=== PATIENT | female | born 1950 | race Caucasian/White ===

== ENCOUNTER 2023-03-09 09:57 | Emergency (ER) | payer MEDICARE, SELFPAY ==
--- NOTE | ~2023-03-09 | XR_ITS ---
XR hand RT min 3V 03/09/2023 10:21 Indication: Right hand pain Procedure: 3 views right hand Comparison: No prior studies for comparison. Findings: There is an oblique displaced fracture fifth proximal phalanx. Osteopenia. Mild polyarticul ar osteoarthritis. Mild soft tissue swelling. Impression: 1: Oblique displaced extra-articular fracture right fifth proximal phalanx with approximately one emory f bone width dorsal displacement. No significant angulation. Reviewed, dictated and finalized at location [] Impression: 1: Oblique displaced extra-articular fracture right fifth proximal phalanx with approximately one half bone width dorsal displacement. No significant angulati on.
[2023-03-09 09:59] VITALS: BP 138/68; PULSE 77; RESP 16; TEMP 36.3; O2SAT 97
--- NOTE | 2023-03-09 11:05 | ED.GENADULT ---
HPI - General Adult General Chief complaint: Extremity Injury, Upper Stated complaint: R HAND INJURY Time Seen by Provider: 03/09/23 10:13 History of Present Illness HPI narrative: 72-year-old female presented the emergency department for evaluation of right fifth finger pain. Patient reports she was getting ready to walk her dog and had the leash wrapped around her right hand when the dog pulled and she felt a pop in her fifth finger. Patient did have some swelling of the fifth and fourth fingers. Patient did have rings on the fourth finger that she removed. Patient denies falling, denies any head neck or back injury. Patient denies any other pain or injury from the incident. Related Data Home Medications Medication Instructions Recorded Confirmed atorvastatin 10 mg tablet 10 mg PO DAILY 02/28/23 02/28/23 escitalopram oxalate 20 mg tablet 20 mg PO DAILY 02/28/23 02/28/23 losartan 100 mg tablet 100 mg PO DAILY 02/28/23 02/28/23 torsemide 5 mg tablet 5 mg PO DAILY 02/28/23 02/28/23 Allergies Allergy/AdvReac Type Severity Reaction Status Date / Time No Known Allergies Allergy Verified 03/09/23 10:09 Review of Systems Review of Systems: All systems reviewed & are unremarkable except as noted in HPI and below PMFSH Social History Social History (System 08/27/19 @ 10:09 by Kalee Caldwell) Spiritual care concerns: No Exam Narrative: APPEARANCE: Well appearing, no pain, no distress, well-nourished. HEAD: normocephalic, atraumatic. EYES: PERRLA/EOMI, conjunctivae clear. NOSE: Normal no drainage NECK: Supple. No adenopathy, no masses. RESPIRATORY: Airway patent, respirations nonlabored. Clear to auscultation bilaterally, no rales, rhonchi, wheezing. CARDIOVASCULAR: Regular rate and rhythm without murmurs rubs or gallops. ABDOMINAL: Soft, nontender, nondistended, normal bowel sounds MUSCULOSKELETAL: Swelling and tenderness of both the fourth and fifth fingers of the right hand neurovascular intact. Strong cap refill NEURO: Alert. Cranial nerves II through XII intact. Grossly intact SKIN: Warm, dry. Normal Color. Cap refill on affected fingers Course Course Emergency Course: 72-year-old female presented to ED for evaluation of right hand pain. Patient does have a fracture of the proximal phalanx of the fifth finger. Patient does have bruising and swelling over both fourth and fifth fingers. Neurovascular intact. Patient was updated on the results of her x-rays, was placed in a metallic splint and was provided follow-up with hand. All questions and concerns were addressed and patient was comfortable with the plan with discharge and close follow-up. Vital Signs Vital signs: Vital Signs Temperature 97.4 F L 03/09/23 09:59 Pulse Rate 77 03/09/23 09:59 Respiratory Rate 16 03/09/23 09:59 Blood Pressure 138/68 03/09/23 09:59 Pulse Oximetry 97 03/09/23 09:59 Oxygen Delivery Room Air 03/09/23 09:59 Temperature 97.4 F L 03/09/23 09:59 Pulse Rate 77 03/09/23 09:59 Respiratory Rate 16 03/09/23 09:59 Blood Pressure 138/68 03/09/23 09:59 Pulse Oximetry 97 03/09/23 09:59 Oxygen Delivery Room Air 03/09/23 09:59 Medical Decision Making Differential Diagnosis Differential Diagnosis: Metacarpal fracture, finger fracture, wrist fracture Vital Signs Vital Signs: Vital Signs Temperature 97.4 F L 03/09/23 09:59 Pulse Rate 77 03/09/23 09:59 Respiratory Rate 16 03/09/23 09:59 Blood Pressure 138/68 03/09/23 09:59 Pulse Oximetry 97 03/09/23 09:59 Oxygen Delivery Room Air 03/09/23 09:59 Temperature 97.4 F L 03/09/23 09:59 Pulse Rate 77 03/09/23 09:59 Respiratory Rate 16 03/09/23 09:59 Blood Pressure 138/68 03/09/23 09:59 Pulse Oximetry 97 03/09/23 09:59 Oxygen Delivery Room Air 03/09/23 09:59 Imaging Data Radiologist's impression: Impressions Hand X-Ray 03/09/23 10:28 Impression: 1: Oblique displaced extra
== END 2023-03-09 11:25 | disposition home or self-care (01) ==
PROVIDERS: Emergency Provider Emergency Medicine; PCP Internal Medicine
DX: S62.616A Displaced fracture of proximal phalanx of right little finger, initial encounter for closed fracture (principal); X50.9XXA Other and unspecified overexertion or strenuous movements or postures, initial encounter; Y93.K1 Activity, walking an animal
CPT/HCPCS: 29130; 29515; 73130; 99284

== ENCOUNTER 2023-03-12 00:40 | Day surgery (SDC) | payer MEDICARE, SELFPAY ==
[2023-02-28 14:07] VITALS: BMI 29.2
--- NOTE | 2023-03-09 15:35 | P.HP_ITS ---
History of Present Illness History of Present Illness Consent: Risks, benefits, and alternatives have been discussed and questions answered. Patient agrees to proceed with procedure. Chief complaint: neoplasm screening Narrative: Valencia Pollock is a 72 year old female referred for colon cancer screening. her last colonoscopy was about 7 years ago. She has a family history, her father had colon cancer. She believes that she had a polyp with her 1st colono scopy. Review of Systems Review of Systems: All systems reviewed & are unremarkable except as noted in HPI and below PMFSH Social History Social History Spiritual care concerns: No Meds Home Medications and Allergies Home Medications Medication Instructions Recorded Confirmed Type atorvastatin 10 mg tablet 10 mg PO DAILY 02/28/23 03/12/23 History escitalopram oxalate 20 mg tablet 20 mg PO DAILY 02/28/23 03/12/23 History losartan 100 mg tablet 100 mg PO DAILY 02/28/23 03/12/23 History torsemide 5 mg tablet 5 mg PO DAILY 02/28/23 03/12/23 History Allergies Allergy/AdvReac Type Severity Reaction Status Date / Time No Known Allergies Allergy Verified 03/12/23 08:44 Exam Resp: Auscultation: clear to auscultation bilaterally Cardio: Rate: regular rate Rhythm: regular rhythm GI: GI Palp: Yes Soft to palpation and No Tenderness to palpation present (GI) Assessment and Plan Assessment and plan (1) Colon cancer screening: Code(s): Z12.11 - Encounter for screening for malignant neoplasm of colon Status: Acute Assessment and Plan: Colonoscopy with possible biopsy or polypectomy or cautery or injection of substances.
[2023-03-12 08:45] VITALS: BP 131/66; PULSE 74; RESP 18; TEMP 36.2; O2SAT 100
[2023-03-12] MEDS: LACTATED RINGERS 1,000 ML 150 ML IV CONT (08:47)
--- NOTE | 2023-03-12 10:09 | P.PNAN_ITS ---
Anes - Initial Pre Proc Eval Procedure: Operation Date: 03/12/23 10:00 Proposed Procedures p Screening Colonoscopy - Gil Schulz MD Date/Time: 03/12/23 10:09 Surgeon: Gil Schulz MD Pre Op Diagnosis: neoplasm screening Patient Data Age: 72 Gender: F Height: 1.68 m Weight: 81.3 kg Last Vital Signs Temp 97.1 F L 03/12/23 08:45 Pulse 74 03/12/23 08:45 Resp 18 03/12/23 08:45 BP 131/66 03/12/23 08:45 Pulse Ox 100 03/12/23 08:45 O2 Del Method Room Air 03/12/23 08:45 Allergies Allergy/AdvReac Type Severity Reaction Status Date / Time No Known Allergies Allergy Verified 03/12/23 08:44 Home Medications Medication Instructions Recorded Confirmed Type atorvastatin 10 mg tablet 10 mg PO DAILY 02/28/23 03/12/23 History escitalopram oxalate 20 mg tablet 20 mg PO DAILY 02/28/23 03/12/23 History losartan 100 mg tablet 100 mg PO DAILY 02/28/23 03/12/23 History torsemide 5 mg tablet 5 mg PO DAILY 02/28/23 03/12/23 History Patient hx anesthesia problems: none Family hx anesthesia problems: none Results Review: All pre-operative results and documents have been reviewed as part of the pre-operative evaluation. COUNT INCLUDES THE [facility] Social History Social History Spiritual care concerns: No Anes - Eval Final PreProcedure Day of Procedure 03/12/23 10:09 Patient weight: normal Heart: regular rate and rhythm Lungs: clear to auscultation Airway: Mallampati scale class II Neurological: alert and oriented Last oral intake: >/= 8 hours ASA classification: II Emergent: no Anesthetic plan: proceed Anesthesia type and monitoring: general GIVS and standard monitoring Results Review: All pre-operative results and documents have been reviewed as part of the pre- operative evaluation. Informed Consent: The patient's anesthetic plan and its attendant risks and benefits were discussed with the patient/family/POA. Questions were solicited and answers provided to the satisfaction of the patient/family/POA.
[2023-03-12 10:32] VITALS: BP 93/46; PULSE 68; RESP 17; O2SAT 97
[2023-03-12 10:42] VITALS: BP 106/70; PULSE 71; RESP 24; O2SAT 100
[2023-03-12 10:52] VITALS: BP 126/69; PULSE 70; RESP 16; O2SAT 100
== END 2023-03-12 11:04 | disposition home or self-care (01) ==
PROVIDERS: PCP Internal Medicine; Visit Provider Internal Medicine Gastroenterology
PROC: 0DJD8ZZ Inspection of Lower Intestinal Tract, Via Natural or Artificial Opening Endoscopic (ICD-10-PCS; CPT 45378; principal; 2023-03-12 10:00)
DX: Z12.11 Encounter for screening for malignant neoplasm of colon (principal); K64.8 Other hemorrhoids; Z80.0 Family history of malignant neoplasm of digestive organs
CPT/HCPCS: G0105; J2704; J7120

== ENCOUNTER 2023-03-23 12:18 | Outpatient (CLI) | payer MEDICARE, SELFPAY ==
--- NOTE | ~2023-03-23 | XR_ITS ---
Right Hand Technique: PA, oblique, and lateral views were obtained. Clinical History: Fracture follow-up COMPARISON: 03/09/2023 Findings: Oblique, minimally displaced fracture of the proximal phalanx of the fifth digit is essenti ally unchanged from prior exam. There is an age-indeterminate oblique fracture deformity at the ulnar aspect of the base the fourth middle phalanx. Stable degenerative change of the DIP joints. Joint sp aces are preserved. Soft tissues are unremarkable. Impression: Oblique, minimally less fracture the fifth proximal phalanx is unchanged. Age-indeterminate oblique intra-articular fracture at the ulnar aspect of the base of the fourth midd le phalanx, similar to prior exam as well. Reviewed, dictated and finalized at location M. Impression: Oblique, minimally less fracture the fifth proximal phalanx is unchanged. Age-indeterminate oblique intra-articular fracture at the ulnar aspect of the b ase of the fourth middle phalanx, similar to prior exam as well.
== END 2023-03-23 12:19 | disposition home or self-care (01) ==
LOC: ANHIMG 12:20
PROVIDERS: PCP Internal Medicine; Visit Provider Plastic Surgery
DX: S62.616A Displaced fracture of proximal phalanx of right little finger, initial encounter for closed fracture (principal); S62.624A Displaced fracture of middle phalanx of right ring finger, initial encounter for closed fracture; T14.90XA Injury, unspecified, initial encounter
CPT/HCPCS: 73130

== ENCOUNTER 2023-05-01 09:45 | Outpatient (RCR) | payer MEDICARE, SELFPAY ==
--- NOTE | 2023-03-09 15:50 | OTOPEVAL1 ---
Assessment and note entered by ANNIE Lira/Naveen, CHT Evaluation Information Assessment Status Evaluation Diagnosis Closed fx right 5th proximal phalanx Onset 02/05/23 Subjective Information Patient referred from the MD office for fabrication of a splint. She fractured her finger yesterday when she was holding her dog's leash and the dog jerked the finger into abduction fracturing the 5th proximal phalanx. Reported Pain Level Pain Score 0: Self Report Assessment OT Clinical Summary Patient referred to outpatient hand therapy for splint fabrication for a right 5th proximal phalanx fracture. Today a custom, hand based hand finger orthosis to immobilize the MCPs of IV and V in about 65 degrees of flexion with the IPs in extension. She will benefit from continued skilled OT to progress ROM when indicated. Plan of Care Interventions Therapeutic Exercise,Manual Therapy,Therapeutic Activities,Check Out for Orthotic/Pr,Paraffin OT Services Indicated Yes Treatment Frequency and 0-1x/week for 4 weeks Duration These treatments will address the objective and functional deficits as defined above. The patient will be advanced safely and appropriately in order for the patient to progress towards his/her prior level of function. Additional exercises will be introduced and as well as a comprehensive home exercise program upon discharge, if needed, ?to ensure carryover of functional gains achieved in the clinic. This treatment plan has been reviewed and agreement upon by the patient.
--- NOTE | 2023-03-09 15:50 | OPREHPOC ---
Outpatient Therapy Plan of Care This is a Multidisciplinary Plan of Care that may contain components documented by all disciplines (PT, OT, and ST.) OT Problem 1 OT Problem #1 Knowledge Deficit OT Goal 1 Goal 1. Patient to be independent with instructed materials. 2. Patient to be independent with splint wearing schedule. Target Visit 4 OT Problem 2 OT Problem #2 Impaired Range of Motion OT Goal 1 Goal 1. Patient to be able to make a full fist and hook fist with all digits on the right hand. Target Visit 4
--- NOTE | 2023-03-19 14:02 | PCOTNOTE ---
Touched base with the patient today about her MD appt this past Sunday. The doctor wants her to have another x-ray and then follow up with him next Sunday (03/30/23). Will reach out at that time regarding scheduling another therapy appt to begin ROM.
--- NOTE | 2023-04-03 10:40 | OTOPPROG ---
Assessment and note entered by ANNIE Lira/Naveen, CHT Evaluation Information Assessment Status Progress Diagnosis Closed fx right 5th proximal phalanx, right 4th middle phalanx base Onset 02/05/23 Subjective Information Patient has been immobilized x4 weeks. She returns today to begin ROM. She reports minimal pain, some residual swelling. She is left hand dominant. Assessment OT Clinical Summary Patient referred to outpatient hand therapy following fractures of the right 5th proximal phalanx and right 4th middle phalanx. She has been immobilized x4 weeks and returns today to begin ROM. An active ROM HEP was issued and she completes these with excellent understanding. Plan to have her complete these independently x2 weeks then have her return for progression to passive ROM followed by progression to strengthening at 8 weeks post fracture. Plan of Care Interventions Therapeutic Exercise,Manual Therapy,Therapeutic Activities,Check Out for Orthotic/Pr,Paraffin OT Services Indicated Yes Treatment Frequency and 0-1x/week for 4 weeks Duration These treatments will address the objective and functional deficits as defined above. The patient will be advanced safely and appropriately in order for the patient to progress towards his/her prior level of function. Additional exercises will be introduced and as well as a comprehensive home exercise program upon discharge, if needed, ?to ensure carryover of functional gains achieved in the clinic. This treatment plan has been reviewed and agreement upon by the patient.
--- NOTE | 2023-05-01 10:13 | OTOPDC ---
Assessment and note entered by ANNIE Lira/Naveen, CHT Discharge Note 05/01/23 Assessment Status Discharge Diagnosis Closed fx right 5th proximal phalanx, right 4th middle phalanx base Onset 02/05/23 Subjective Information Patient is 8 weeks post fracture. We have progressed to strengthening and she is doing well with this. She reports no functional limitations at this time. Gross flexion of the fingers have progressed to functional limits. 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 Reported Pain Level Pain Score 0: Self Report Assessment OT Clinical Summary Patient referred to outpatient hand therapy following fractures of the right 5th proximal phalanx and right 4th middle phalanx. ROM and strength have returned to functional limits. She has some residual stiffness, but she reports everything is improving. Upgraded [employer] HEP today. Recommending she continue to work on her HEP for another 3 weeks on her own. Discharging from therapy at this time with goals met.
== END 2023-05-01 14:12 | disposition home or self-care (01) ==
LOC: ANHOT 09:45
PROVIDERS: PCP Internal Medicine; Visit Provider Plastic Surgery
DX: S62.646D Nondisplaced fracture of proximal phalanx of right little finger, subsequent encounter for fracture with routine healing (principal)
CPT/HCPCS: 97018; 97110; 97165; L3913

== ENCOUNTER 2024-02-22 10:00 | Outpatient (RCR) | payer MEDICARE, SELFPAY ==
--- NOTE | 2024-01-31 10:40 | OPREHPOC ---
Outpatient Therapy Plan of Care This is a Multidisciplinary Plan of Care that may contain components documented by all disciplines (PT, OT, and ST.) PT Problem 1 PT Problem #1 Knowledge Deficit PT Goal 1 Goal *indep with HEP Target Visit 6 PT Problem 2 PT Problem #2 Pain PT Goal 1 Goal 1* pt report pain at worst in L knee of 2/10 2* LE functional scale of 24% limitation in activity level Target Visit 6 PT Problem 3 PT Problem #3 Impaired Flexibility PT Goal 1 Goal increase flexibility of anterior hip-quad with prone knee flexion 105' 1* R 2* L 3* with piriformis stretch in supine, pt report R= L tightness with the stretch Target Visit 6 PT Problem 4 PT Problem #4 Impaired Strength PT Goal 1 Goal increase strength of L LE to improve stability to knee: 1* single leg standing x 16 seconds 2* mat strengthening exercises with 3# ankle wt x 15 reps Target Visit 6
--- NOTE | 2024-01-31 10:40 | PTOPEVAL1 ---
Assessment and note entered by Marilyn Lynn, PT Evaluation Information Assessment Status Evaluation Diagnosis L knee pain; R hip trochanteric bursitis Onset Oct 2023 Subjective Information gradual increase in pain, no trauma or injury; saw general dr and was sent to ortho dr; xray of both knees reports mild OA both knees; L knee injection helped pain; have a membership to [employer]-not been going due to knee pain; R hip pain only when lie on R side in bed; do not have swelling in knee; Activity: do not use assistive device; indep with home and self care tasks, drives; able to walk her dog a few blocks; have not been able to ride her bicycle outside; Reported Pain Level Pain Score 1: Self Report Additional Pain Score Comments L knee pain range in the past week: 1-3/10 increase pain: mowing grass decrease pain: rest/sit, ice, tylenol PRN; muscle cream; no issues with walking or sleeping; --------- R hip pain with lying on R side in bed--can lie on it about 15 minutes; Assessment PT Clinical Summary Valencia has the diagnosis of L knee pain/OA and R hip trochanteric bursitis. She reports less pain in her knee since the injection, and dr told her there may be some meniscal issues with her knee. R hip only hurts when lying on her R side. Self assessment LE functional scale of 33% limitation in activity. She is active, does all her home and self care tasks, and mows her yard. Her medical history includes back pain, HTN. X ray of both knees reports mild OA. With the evaluation: she has a good gait pattern; 2 minute walking test distance of 425'; R and L hip and knee active ROM is WNL, with only painful motion in supine is L hip IR--increase knee pain; single leg standing on L increases L knee pain; decreased flexibility of R piriformis and bilateral anterior hip-quad with prone knee flexion; slight decrease strength of hips and knees. Skilled PT services ar
--- NOTE | 2024-02-22 10:40 | PTOPDC ---
Assessment and note entered by Marilyn Lynn, PT Discharge Information Assessment Status Discharge Diagnosis L knee pain; R hip trochanteric bursitis Onset Oct 2023 Subjective Information still have problems with swelling behind knee; to see dr next week; doing the exercises; have a membership for [employer]- been one time Reported Pain Level Pain Score Self Report L knee Additional Pain Score Comments pain range in the past week 0-3/10; over medial and posterior knee, sometimes it pops, but does not hurt when it pops; increase pain: mowing yard and walking on uneven ground decrease pain: rest, ice, tylenol PRN --------- R hip only hurts when in bed and lie on R side, only tolerate about 15 minutes; Assessment PT Clinical Summary Valencia has received 6 PT sessions. Compared to the initial evaluation: pain from 1-3/ 10 to 0-3/10 L knee; pain increases with supine L knee extension end range; R hip only painful with lying on her R side for 15 minutes; increase strength of L hip and knee; increased flexibility of bilateral piriformis and anterior hip-quad muscles; self assessment with LE functional scale rating from 33 to 26% limitation in activity level; education for HEP. The goals were partially achieved. Discharge PT, she is to continue with HEP. Plan of Care PT Services Indicated No
== END 2024-02-22 13:53 | disposition home or self-care (01) ==
LOC: ANHPT 10:00
PROVIDERS: PCP Internal Medicine; Visit Provider Orthopaedic Surgery
DX: M17.12 Unilateral primary osteoarthritis, left knee (principal); M70.61 Trochanteric bursitis, right hip
CPT/HCPCS: 97110; 97112; 97140; 97162; 97530

== ENCOUNTER 2024-03-04 08:30 | Outpatient (CLI) | payer MEDICARE, SELFPAY ==
--- NOTE | ~2024-03-04 | MR_ITS ---
MRI of the left knee Clinical history: Pain Technique: Coronal proton density and proton density-weighted images, sagittal proton-density and T2 fat-sat images, and axial proton-density fat-saturated images were acquired. Findings: Anterior and posterior cruciate ligaments are intact. Medial collateral ligament and the la teral collateral ligament complex are intact. Popliteus tendon is intact. There is oblique flap tear of the posterior horn of the medial meniscus. There is complex tearing of the lateral meniscus involving the body and posterior horn, with suspected horizontal tear extension into the anterior horn. 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 There is also diffuse grade IV chondromalacia the femoral trochlea. There is extensive moderate to high-grade chondromalacia of the medial compartment . There is mild chondromalacia of the lateral compartment. Small tricompartmental osteophytes are pre sent. Extensor mechanism is intact. Small joint effusion present. No Martinez's cyst. Impression: Oblique flap tear of the posterior horn of the medial meniscus. Probable complex tearing of the posterior horn and body of the lateral meniscus, with possible horizo ntal tear extension into the anterior horn. Advanced degenerative change of the patellofemoral and medial compartments, as above. Mild to moderat e lateral compartment degenerative change. Reviewed, dictated and finalized at location . Impression: Oblique flap tear of the posterior horn of the medial meniscus. Probable complex tearing of the posterior horn and body of the lateral meniscus , with possible horizontal tear extension into the anterior horn. Advanced degenerative change of the patellofemoral and medial compartments, as above. Mild to moderate lateral compartment degenerative change.
== END 2024-03-04 08:31 | disposition home or self-care (01) ==
PROVIDERS: PCP Internal Medicine; Visit Provider Orthopaedic Surgery
DX: M17.12 Unilateral primary osteoarthritis, left knee (principal); S83.242A Other tear of medial meniscus, current injury, left knee, initial encounter; X58.XXXA Exposure to other specified factors, initial encounter
CPT/HCPCS: 73721